=== PATIENT | female | born 1955 | race Caucasian/White ===

== ENCOUNTER 2017-12-26 23:29 | Emergency (ER) | payer BC ==
[~2017-12-26] VITALS: Ht 175.3 cm; Wt 104.0 kg
[~2017-12-26 23:29] MED LIST: ACTOS; AM10; AUG500; CELEXA; GLIPIZIDE; LANTUS; LOTENSIN; LOVA20TA2 PO; OMEPRAZOLE
[2017-12-27] MEDS ORDERED: SODIUM CHLORIDE 0.9% 1,000 ML IV ONE (00:08)
[2017-12-27] MEDS ORDERED: ONDANSETRON HCL 4MG/2ML VIAL IV STA (00:08)
[2017-12-27] MEDS ORDERED: DEXAMETHASONE 10 MG/ML VIAL IV ONE (00:15)
[2017-12-27] MEDS ORDERED: MECLIZINE 25MG TABLET PO ONE (00:15)
[2017-12-27 00:41] LABS: BASOPHILS % 0.7 % (0.0-2.0); EOSINOPHILS % 3.3 % (0.0-5.0); HEMATOCRIT. 38.5 % (36.0-48.0); HEMOGLOBIN. 12.9 g/dL (12.0-16.0); LYMPHOCYTES % 33.1 % (20.0-50.0); MEAN CORPUSCULAR HEMOGLOBIN 28.1 pg (28.0-32.0); MEAN CORPUSCULAR VOLUME 83.8 fL (81.0-99.0); MONOCYTES % 6.4 % (2.0-8.0); NEUTROPHILS % 56.5 % (40.0-76.0); PLATELET 230 x1000/uL (130-400); RED CELL DISTRIBUTION WIDTH 13.6 % (11.6-14.6)
[2017-12-27 00:45] LABS: CHLORIDE 100 mEq/L (98-107)
[2017-12-27 00:46] LABS: PROTHROMBIN TIME 10.7 sec (9.4-11.6)
[2017-12-27 01:06] LABS: CLARITY URINE CLEAR (CLEAR); COLOR URINE YELLOW (YELLOW); KETONES URINE NEGATIVE (NEGATIVE); LEUKOCYTE ESTERASE URINE 1+ (NEGATIVE); NITRITE URINE NEGATIVE (NEGATIVE); OCCULT BLOOD URINE NEGATIVE (NEGATIVE); PH URINE 8.5 (4.5-8.0); PROTEIN URINE NEGATIVE (NEGATIVE); SPECIFIC GRAVITY URINE 1.017 (1.005-1.030)
[2017-12-27] MEDS ORDERED: KETOROLAC 30MG/ML VIAL IV ONE (03:15)
[2017-12-27 06:39] VITALS: BP 133/73
== END 2017-12-27 06:42 | disposition home or self-care (01) ==
LOC: ER 23:29
DX: R51 Headache (principal); R42 Dizziness and giddiness; E11.9 Type 2 diabetes mellitus without complications; N39.0 Urinary tract infection, site not specified; F32.9 Major depressive disorder, single episode, unspecified; E78.00 Pure hypercholesterolemia, unspecified; I10 Essential (primary) hypertension; G47.30 Sleep apnea, unspecified; Z79.4 Long term (current) use of insulin; Z90.49 Acquired absence of other specified parts of digestive tract; Z98.84 Bariatric surgery status; Z96.642 Presence of left artificial hip joint
CPT/HCPCS: 36415; 70450; 71045; 80053; 81003; 82962; 84484; 85025; 85610; 85730; 96361; 96374; 96375; 99285; J1100; J1885; J2405; J7030; J8597